=== PATIENT | male | born 1975 | race Caucasian/White ===

== ENCOUNTER 2017-08-14 09:53 | Emergency (ER) | payer BC, OTHER ==
[2017-08-14 10:49] LABS: Urine Appearance Cloudy; Urine Blood Negative (Negative); Urine Color Yellow; Urine Ketones Trace (Negative); Urine Protein 1+(30 mg/dL) (Negative); Urine Urobilinogen Negative (Negative)
[2017-08-14 11:29] LABS: ABS Basophils 0.1 10^3/ul (0-0.2); ABS Eosinophils 0 10^3/ul (0-0.6); ABS Lymphocytes 2.5 10^3/ul (1.0-4.8); ABS Neutrophils 9.2 10^3/ul (1.5-7.7); ABS Nucleated RBC 0 10^3/ul; Eosinophil % 0.3 % (0-6); Hematocrit 47 % (42-52); Lymphocyte % 19.2 % (25-47); Mean Corpuscular HGB Conc 34 g/dl (31-36); Mean Corpuscular Hemoglobin 30 pg (27-31); Mean Corpuscular Volume 90 fL (80-94); Mean Platelet Volume 9 um3 (7.4-10.4); Nucleated Red Blood Cells % 0; Platelet Count 293 10^3/ul (150-450); Red Blood Count 5.26 10^6/ul (4.0-5.4); Red Cell Distribution Width 14 % (10.5-15); White Blood Count 12.8 10^3/ul (3.5-10.8)
[2017-08-14 11:45] LABS: EGFR Non-African American 88.4 (>60)
[2017-08-14] MEDS ORDERED: Nicotine Inhaler* 10 MG AMP ONE (12:18)
[2017-08-14] MEDS ORDERED: Mouth Piece, Nicotine* 1 EACH CARTRIDGE ONE (12:18)
[2017-08-14] MEDS ORDERED: Mouth Piece, Nicotine* 1 EACH CARTRIDGE INH PRN (12:20)
[2017-08-14] MEDS ORDERED: Nicotine Inhaler* 10 MG AMP INH ONE (12:20)
[2017-08-14 13:04] VITALS: BP 133/81
--- NOTE | 2017-08-14 13:24 | ED ---
Fly Dawson Gabriel, scribed for Juvenal Arroyo MD on 08/14/17 at 1002 . Psychiatric Complaint - HPI Summary HPI Summary: This patient is a 41 year old M BIBA to [facility] accompanied by the paramedics with a chief complaint of increased anxiety. The patient rates the pain 0/10 in severity. Patient states he has had a recent increase of stress in his life after his friends so . He has previous broke his back and takes pain medication daily. Additionally he is on parole and admits to meth use. - History Of Current Complaint Time Seen by Provider: 08/14/17 09:59 Hx Obtained From: Patient Onset/Duration: Lasting Hours, Still Present Timing: Constant Severity Initially: Moderate Severity Currently: Moderate Character: Anxious Aggravating Factor(s): Recent Stress, Drug Use - Allergies/Home Medications Allergies/Adverse Reactions: Allergies Allergy/AdvReac Type Severity Reaction Status Date / Time acetaminophen [From Percocet] Allergy Hallucinati Verified 08/14/17 11:36 ons oxycodone [From Percocet] Allergy Hallucinati Verified 08/14/17 11:36 ons Home Medications: Home Medications Gabapentin CAP(*) [Neurontin 400 mg CAP(*)] 600 mg PO QID 08/14/17 [History Confirmed 08/14/17] Morphine TAB Extended Rel(*) [Ms Contin(*)] 30 mg PO BID 08/14/17 [History Confirmed 08/14/17] PMH/Surg Hx/FS Hx/Imm Hx Endocrine/Hematology History: Denies: Hx Diabetes, Hx Sickle Cell Disease Musculoskeletal History: Reports: Other Musculoskeletal History - broke his back EENT History: Denies: Hx Deafness Psychiatric History: Reports: Hx Anxiety - Cancer History Cancer Type, Location and Year: basal cell carcinoma - Family History Known Family History: Positive: Cardiac Disease - father had an NH, Diabetes - mother - Social History Alcohol Use: Weekly Substance Use Type: Reports: Other - meth Hx Tobacco Use: Yes Smoking Status (MU): Current Every Day Smoker Review of Systems Negative: Fever Positive: Anxious All Other Systems Reviewed And Are Negative: Yes Physical Exam - Summary Physical Exam Summary: VITAL SIGNS: Reviewed. GENERAL: Patient is a well-developed and nourished male who is lying comfortable in the stretcher. Patient is not in any acute respiratory distress. HEAD AND FACE: No signs of trauma. No ecchymosis, hematomas or skull depressions. No sinus tenderness. EYES: PERRLA, EOMI x 2, No injected conjunctiva, no nystagmus. EARS: Hearing grossly intact. Ear canals and tympanic membranes are within normal limits. MOUTH: Oropharynx within normal limits. NECK: Supple, trachea is midline, no adenopathy, no JVD, no carotid bruit, no c- spine tenderness, neck with full ROM. CHEST: Symmetric, no tenderness at palpation LUNGS: Clear to auscultation bilaterally. No wheezing or crackles. CVS: Regular rate and rhythm, S1 and S2 present, no murmurs or gallops appreciated. ABDOMEN: Soft, non-tender. No signs of distention. No rebound no guarding, and no masses palpated. Bowel sounds are normal. EXTREMITIES: FROM in all major joints, no edema, no cyanosis or clubbing. NEURO: Alert and oriented x 3. No acute neurological deficits. Speech is normal and follows commands. SKIN: Dry and warm Triage Information Reviewed: Yes Vital Signs On Initial Exam: Initial Vitals Temp Pulse Resp BP Pulse Ox 98.4 F 94 20 168/97 97 08/14/17 10:03 08/14/17 10:03 08/14/17 10:03 08/14/17 10:03 08/14/17 10:03 Vital Signs Reviewed: Yes Diagnostics - Vital Signs Vital Signs Temp Pulse Resp BP Pulse Ox 08/14/17 13:03 98.2 F 110 17 133/81 96 08/14/17 10:03 98.4 F 94 20 168/97 97 - Laboratory Lab Results: Lab Results 08/14/17 08/14/17 08/14/17 Range/Units 10:15 10:15 11:16 WBC (3.5-10.8) 10^3/ul RBC (4.0-5.4) 10^6/ul Hgb (14.0-18.0) g/dl Hct (42-52) % MCV (80-94) fL MCH (27-31) pg MCHC (31-36) g/dl RDW (10.5-15) % Plt Count (150-450) 10^3/ul MPV (7.4-10.4) um3 Neut % (Auto) (38-83) % Lymph % (Auto) (25-47) % Wright % (Auto) (0-7) % Eos % (Auto) (0-6) % Baso % (Auto) (0-2) % Absolute Neuts (auto) (1.5-7.7) 10^3/ul Absolute Lymphs (auto) (1.0-4.8) 10^3/ul Absolute Monos (auto) (0-0.8) 10^3/ul Absolute Eos (auto) (0-0.6) 10^3/ul Absolute Basos (auto) (0-0.2) 10^3/ul Absolute Nucleated RBC 10^3/ul Nucleated RBC % Sodium 138 (133-145) mmol/L Potassium 3.8 (3.5-5.0) mmol/L Chloride 105 (101-111) mmol/L Carbon Dioxide 24 (22-32) mmol/L Anion Gap 9 (2-11) mmol/L BUN 17 (6-24) mg/dL Creatinine 0.94 (0.67-1.17) mg/dL Est GFR ( Amer) 113.7 (>60) Est GFR (Non-Af Amer) 88.4 (>60) BUN/Creatinine Ratio 18.1 (8-20) Glucose 98 (70-100) mg/dL Calcium 10.1 (8.6-10.3) mg/dL Total Bilirubin 0.50 (0.2-1.0) mg/dL AST 21 (13-39) U/L ALT 30 (7-52) U/L Alkaline Phosphatase 72 (34-104) U/L Total Protein 7.6 (6.4-8.9) g/dL Albumin 4.7 (3.2-5.2) g/dL Globulin 2.9 (2-4) g/dL Albumin/Globulin Ratio 1.6 (1-3) TSH 1.02 (0.34-5.60) mcIU/mL Urine Color Yellow Urine Appearance Cloudy Urine pH 5.0 (5-9) Ur Specific Lindsay 1.030 (1.010-1.030) Urine Protein 1+(30 mg/dl) A (Negative) Urine Ketones Trace A (Negative) Urine Blood Negative (Negative) Urine Nitrate Negative (Negative) Urine Bilirubin Negative (Negative) Urine Urobilinogen Negative (Negative) Ur Leukocyte Esterase Negative (Negative) Urine WBC (Auto) Trace(0-5/hpf) (Absent) Urine RBC (Auto) Absent (Absent) Urine Bacteria Absent (Absent) Urine Glucose Negative (Negative) Urine Ascorbic Acid * A (Negative) Salicylates < 2.50 (<30) mg/dL Urine Opiates Screen None detected (None Detect) Acetaminophen < 15 mcg/mL Ur Barbiturates Screen None detected (None Detect) Ur Phencyclidine Scrn None detected (None Detect) Ur Amphetamines Screen Presumptive positive A (None Detect) U Benzodiazepines Scrn None detected (None Detect) Urine Cocaine Screen None detected (None Detect) U Cannabinoids Screen Presumptive positive A (None Detect) Serum Alcohol < 10 (<10) mg/dL 08/14/17 Range/Units 11:16 WBC 12.8 H (3.5-10.8) 10^3/ul RBC 5.26 (4.0-5.4) 10^6/ul Hgb 16.0 (14.0-18.0) g/dl Hct 47 (42-52) % MCV 90 (80-94) fL MCH 30 (27-31) pg MCHC 34 (31-36) g/dl RDW 14 (10.5-15) % Plt Count 293 (150-450) 10^3/ul MPV 9 (7.4-10.4) um3 Neut % (Auto) 71.8 (38-83) % Lymph % (Auto) 19.2 L (25-47) % Wright % (Auto) 8.0 H (0-7) % Eos % (Auto) 0.3 (0-6) % Baso % (Auto) 0.7 (0-2) % Absolute Neuts (auto) 9.2 H (1.5-7.7) 10^3/ul Absolute Lymphs (auto) 2.5 (1.0-4.8) 10^3/ul Absolute Monos (auto) 1.0 H (0-0.8) 10^3/ul Absolute Eos (auto) 0 (0-0.6) 10^3/ul Absolute Basos (auto) 0.1 (0-0.2) 10^3/ul Absolute Nucleated RBC 0 10^3/ul Nucleated RBC % 0 Sodium (133-145) mmol/L Potassium (3.5-5.0) mmol/L Chloride (101-111) mmol/L Carbon Dioxide (22-32) mmol/L Anion Gap (2-11) mmol/L BUN (6-24) mg/dL Creatinine (0.67-1.17) mg/dL Est GFR ( Amer) (>60) Est GFR (Non-Af Amer) (>60) BUN/Creatinine Ratio (8-20) Glucose (70-100) mg/dL Calcium (8.6-10.3) mg/dL Total Bilirubin (0.2-1.0) mg/dL AST (13-39) U/L ALT (7-52) U/L Alkaline Phosphatase (34-104) U/L Total Protein (6.4-8.9) g/dL Albumin (3.2-5.2) g/dL Globulin (2-4) g/dL Albumin/Globulin Ratio (1-3) TSH (0.34-5.60) mcIU/mL Urine Color Urine Appearance Urine pH (5-9) Ur Specific Lindsay (1.010-1.030) Urine Protein (Negative) Urine Ketones (Negative) Urine Blood (Negative) Urine Nitrate (Negative) Urine Bilirubin (Negative) Urine Urobilinogen (Negative) Ur Leukocyte Esterase (Negative) Urine WBC (Auto) (Absent) Urine RBC (Auto) (Absent) Urine Bacteria (Absent) Urine Glucose (Negative) Urine Ascorbic Acid (Negative) Salicylates (<30) mg/dL Urine Opiates Screen (None Detect) Acetaminophen mcg/mL Ur Barbiturates Screen (None Detect) Ur Phencyclidine Scrn (None Detect) Ur Amphetamines Screen (None Detect) U Benzodiazepines Scrn (None Detect) Urine Cocaine Screen (None Detect) U Cannabinoids Screen (None Detect) Serum Alcohol (<10) mg/dL Result Diagrams: 08/14/17 11:16 08/14/17 11:16 Lab Statement: Any lab studies that have been ordered have been reviewed, and results considered in the medical decision making process. Course/Dx - Course Assessment/Plan: This patient is a 41 year old M BIBA to [facility] accompanied by the paramedics with a chief complaint of increased anxiety. The patient rates the pain 0/10 in severity. Patient states he has had a recent increase of stress in his life after his friends so . He has previous broke his back and takes pain medication daily. Additionally he is on parole and admits to meth use. Test results with no significant abnormalities except for a positive toxicology for amphetamines and cannabinoids. In the ED course the patient was given nicotine inhaler and she is hemodynamicaly stable. The patient had a MHE and his was cleared by Dr. Templeton and recommends discharge home with F/U od PCP. He has no SI or HI. Dx polysubstance and anxiety. Patient will be discharged and follow up from his PCP. The patient is agreeable with this plan. - Differential Dx/Clinical Impression Differential Diagnosis/HQI/PQRI: Positive: Anxiety, Depression Provider Diagnosis: Polysubstance abuse, Anxiety Discharge - Discharge Plan Condition: Good Disposition: HOME Referrals: Non Staff,Doctor [Medical Doctor] - The documentation as recorded by the Fly stephenson Gabriel accurately reflects the service I personally performed and the decisions made by me, Juvenal Arroyo MD.
== END 2017-08-14 13:04 | disposition home or self-care (01) ==
LOC: ED 09:53
DX: F19.10 Other psychoactive substance abuse, uncomplicated (principal); F41.9 Anxiety disorder, unspecified; F17.210 Nicotine dependence, cigarettes, uncomplicated
CPT/HCPCS: 36415; 80053; 80307; 80320; 80329; 81003; 81015; 84443; 85025; 87086; 99282; A9270-GY; G0480

== ENCOUNTER 2017-08-14 15:39 | Emergency (ER) | payer OTHER ==
[2017-08-14] MEDS ORDERED: diPHENhydraMINE IV* 50 MG/ML 1 ml VIAL (BENADRYL) ONE (15:50)
[2017-08-14] MEDS ORDERED: Haloperidol INJ IV/IM* 5 MG/ML AMP ONE (15:50)
[2017-08-14] MEDS ORDERED: LORazepam INJ* 2 MG/ML 1 ML VIAL ONE ×2 (15:50→15:59)
[2017-08-14] MEDS ORDERED: LORazepam INJ* 2 MG/ML 1 ML VIAL IV PUSH ONE (15:57)
[2017-08-14] MEDS ORDERED: NS 0.9% 1000 ML* 1,000 ML IV ONE (16:06)
[2017-08-14 17:26] LABS: Urine Appearance Cloudy; Urine Blood Negative (Negative); Urine Color Amber; Urine Ketones 1+ (Negative); Urine Protein 2+(100 mg/dL) (Negative); Urine Specific Gravity 1.029 (1.010-1.030); Urine Urobilinogen Negative (Negative)
[2017-08-14 17:44] LABS: ABS Basophils 0.1 10^3/ul (0-0.2); ABS Eosinophils 0 10^3/ul (0-0.6); ABS Lymphocytes 1.3 10^3/ul (1.0-4.8); ABS Monocytes 1.3 10^3/ul (0-0.8); ABS Neutrophils 15.4 10^3/ul (1.5-7.7); ABS Nucleated RBC 0 10^3/ul; Eosinophil % 0.1 % (0-6); Hematocrit 46 % (42-52); Hemoglobin 15.5 g/dl (14.0-18.0); Lymphocyte % 7.2 % (25-47); Mean Corpuscular HGB Conc 34 g/dl (31-36); Mean Corpuscular Hemoglobin 30 pg (27-31); Mean Corpuscular Volume 89 fL (80-94); Mean Platelet Volume 9 um3 (7.4-10.4); Nucleated Red Blood Cells % 0; Platelet Count 281 10^3/ul (150-450); Red Blood Count 5.14 10^6/ul (4.0-5.4); Red Cell Distribution Width 13 % (10.5-15)
[2017-08-14 18:02] LABS: EGFR Non-African American 54.1 (>60)
[2017-08-15 06:52] VITALS: BP 111/83
--- NOTE | 2017-08-15 06:53 | ED ---
Attila Dawson Tiffany, scribed for Amy Asif MD on 08/15/17 at 0646 . Progress - Progress Note Progress Note: Patient is a sign out from Dr. Arroyo. - Consult/PCP Time Called: 05:50 Course/Dx - Course Course Of Treatment: 41 y/o M presents with substance abuse. Cleared by mental health. Will be discharged. - Diagnoses Provider Diagnoses: Substance abuse The documentation as recorded by the Attila stephenson Tiffany accurately reflects the service I personally performed and the decisions made by Laya remy Abdul, MD.
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
== END 2017-08-15 06:47 ==
LOC: ED 15:39
DX: F19.10 Other psychoactive substance abuse, uncomplicated (principal); F17.200 Nicotine dependence, unspecified, uncomplicated; Z88.6 Allergy status to analgesic agent; Z88.5 Allergy status to narcotic agent
CPT/HCPCS: 36415; 80053; 80307; 80320; 80329; 81003; 82550; 84443; 85025; 93005; 96361; 96374; 96375; 96376; 99285; G0480; J1200; J1630; J2060

== ENCOUNTER 2017-08-18 06:53 | Emergency (ER) | payer OTHER ==
[2017-08-18] MEDS ORDERED: Ziprasidone IM INJ* 20 MG/ML VIAL IM ONE (07:27)
[2017-08-18] MEDS ORDERED: LORazepam INJ* 2 MG/ML 1 ML VIAL IV PUSH ONE ×2 (07:27→07:36)
[2017-08-18] MEDS ORDERED: LORazepam INJ* 2 MG/ML 1 ML VIAL ONE (07:37)
[2017-08-18 07:48] LABS: Urine Appearance Cloudy; Urine Blood Negative (Negative); Urine Color Yellow; Urine Ketones 1+ (Negative); Urine Protein Negative (Negative); Urine Specific Gravity 1.024 (1.010-1.030); Urine Urobilinogen Negative (Negative)
[2017-08-18 07:57] VITALS: BP 0/0
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
== END 2017-08-18 07:54 | disposition home or self-care (01) ==
LOC: ED 06:53
DX: F41.9 Anxiety disorder, unspecified (principal); F17.200 Nicotine dependence, unspecified, uncomplicated
CPT/HCPCS: 36415; 80307; 81003; 81015; 87086; 99283; J2060; J3486

== ENCOUNTER 2018-11-05 20:36 | Emergency (ER) | payer OTHER ==
[2018-11-05] MEDS ORDERED: LORazepam INJ* 2 MG/ML 1 ML VIAL ONE (20:49)
[2018-11-05] MEDS ORDERED: Haloperidol INJ IV/IM* 5 MG/ML AMP ONE (20:53)
[2018-11-05] MEDS ORDERED: diPHENhydraMINE IV* 50 MG/ML 1 ml VIAL (BENADRYL) ONE (20:53)
[2018-11-05 21:42] LABS: ABS Basophils 0.1 10^3/ul (0-0.2); ABS Lymphocytes 0.9 10^3/ul (1.0-4.8); ABS Monocytes 0.5 10^3/ul (0-0.8); ABS Neutrophils 6.6 10^3/ul (1.5-7.7); Eosinophil % 0.1 %; Hematocrit 46 % (42-52); Hemoglobin 15.4 g/dL (14.0-18.0); Lymphocyte % 11.6 %; Mean Corpuscular HGB Conc 34 g/dL (31-36); Mean Corpuscular Hemoglobin 31 pg (27-31); Mean Corpuscular Volume 92 fL (80-94); Mean Platelet Volume 8.3 fL (7.4-10.4); Platelet Count 242 10^3/uL (150-450); Red Blood Count 4.98 10^6 /uL (4.18-5.48); Red Cell Distribution Width 14 % (10.5-15); White Blood Count 8.1 10^3/uL (3.5-10.8)
[2018-11-05 21:59] LABS: ALT 34 U/L (7-52); AST 20 U/L (13-39); Albumin 4.7 g/dL (3.2-5.2); Albumin/Globulin Ratio 1.9 (1-3); Alkaline Phosphatase 67 U/L (34-104); Anion Gap 9 mmol/L (2-11); BUN/Creatinine Ratio 11.4 (8-20); Blood Urea Nitrogen 17 mg/dL (6-24); CO2 Carbon Dioxide 26 mmol/L (22-32); Calcium 9.7 mg/dL (8.6-10.3); Chloride 103 mmol/L (101-111); Creatine Kinase 284 U/L (10-223); EGFR African American 62.3 (>60); EGFR Non-African American 51.5 (>60); Globulin 2.5 g/dL (2-4); Glucose 196 mg/dL (70-100); Potassium 3.9 mmol/L (3.5-5.0); Sodium 138 mmol/L (135-145); Total Protein 7.2 g/dL (6.4-8.9)
[2018-11-05] MEDS ORDERED: NS 0.9% 1000 ML** 1,000 ML IV ONE ×2 (22:09→23:23)
[2018-11-05 22:30] LABS: Acetaminophen < 15 mcg/mL; Alcohol < 10 mg/dL (<10); Salicylate < 2.50 mg/dL (<30)
--- NOTE | 2018-11-05 22:37 | ED ---
Substance Abuse/Use - HPI Summary HPI Summary: This patient is a 43 year old M in handcuffs [facility] because patients mother kept calling 911 due to multiple hallucinations. Police reports multiple hallucinations and conversations with people not there. Patient denies SI and HI. Patient reports snorting meth around 1400 today and smoking marijuana. Patient is restrained by law enforcement for duration of history. - History Of Current Complaint Chief Complaint: EDMentalHealth Stated Complaint: 941 PER POLICE Time Seen by Provider: 11/05/18 20:45 Hx Obtained From: Patient, EMS Onset/Duration of Drug/ETOH Abuse: Hours Ingestion History: Type/Name Of Drug - meth marijuana Overdose Characteristics: Oral, Inhalation Character: Manic Alleviating Factor(s): Nothing Associated Signs And Symptoms: Hostile, Hallucinating - Allergies/Home Medications Allergies/Adverse Reactions: Allergies Allergy/AdvReac Type Severity Reaction Status Date / Time acetaminophen [From Percocet] Allergy Hallucinati Verified 08/14/17 11:36 ons Opioids - Morphine Analogues Allergy Hallucinati Verified 11/05/18 20:38 ons oxycodone [From Percocet] Allergy Hallucinati Verified 08/14/17 11:36 ons Home Medications: Home Medications Gabapentin 1,200 mg PO BEDTIME 11/05/18 [History Confirmed 11/05/18] Gabapentin 600 mg PO SEE INSTRUCTIONS 11/05/18 [History Confirmed 11/05/18] Sertraline* [Zoloft*] 100 mg PO DAILY 11/05/18 [History Confirmed 11/05/18] busPIRone TAB* [Buspar TAB *] 15 mg PO BID 11/05/18 [History Confirmed 11/05/18] PMH/Surg Hx/FS Hx/Imm Hx Endocrine/Hematology History: Denies: Hx Diabetes, Hx Sickle Cell Disease Musculoskeletal History: Reports: Other Musculoskeletal History - broke his back Sensory History: Denies: Hx Deafness Psychiatric History: Reports: Hx Anxiety Denies: Hx Eating Disorder, Hx of Violent Episodes Against Others - Cancer History Cancer Type, Location and Year: basal cell carcinoma Infectious Disease History: No Infectious Disease History: Denies: Traveled Outside the [place] in Last 30 Days - Family History Known Family History: Positive: Cardiac Disease - father had an [place], Diabetes - mother - Social History Alcohol Use: Weekly Substance Use Type: Reports: Marijuana, Other Substance Use Comment - Amount & Last Used: meth Hx Tobacco Use: Yes Smoking Status (MU): Current Every Day Smoker Review of Systems Constitutional: Negative Positive: Other - hallucinations. Negative: Depressed All Other Systems Reviewed And Are Negative: Yes Physical Exam - Summary Physical Exam Summary: GENERAL: Patient is a well-developed and nourished M who is currently agitated and restrained by officers. Patient is not in any acute respiratory distress. HEAD AND FACE: Normocephalic EYES: PERRLA, EOMI x 2. EARS: Hearing grossly intact. MOUTH: Oropharynx within normal limits. NECK: Supple, trachea is midline, no adenopathy, no JVD, no carotid bruit. CHEST: Symmetric, no tenderness at palpation LUNGS: Clear to auscultation bilaterally. No wheezing or crackles. CVS: Regular rate and rhythm, S1 and S2 present, no murmurs or gallops appreciated. ABDOMEN: Soft, non-tender. Bowel sounds are normal. No abnormal abdominal pulsations. EXTREMITIES: Full ROM in all major joints, no edema, no cyanosis or clubbing. NEURO: Alert and oriented x 3. No acute neurological deficits. Speech is normal and follows commands. SKIN: Dry and warm Triage Information Reviewed: Yes Vital Signs On Initial Exam: Initial Vitals Temp Pulse Resp BP Pulse Ox 98.5 F 163 18 0/0 98 11/05/18 20:36 11/05/18 20:36 11/05/18 20:36 11/05/18 20:36 11/05/18 20:36 Vital Signs Reviewed: Yes Diagnostics - Vital Signs Vital Signs Temp Pulse Resp BP Pulse Ox 11/05/18 20:36 98.5 F 163 18 0/0 98 - Laboratory Lab Results: Lab Results 11/05/18 11/05/18 Range/Units 21:35 21:35 WBC 8.1 (3.5-10.8) 10^3/uL RBC 4.98 (4.18-5.48) 10^6 /uL Hgb 15.4 (14.0-18.0) g/dL Hct 46 (42-52) % MCV 92 (80-94) fL MCH 31 (27-31) pg MCHC 34 (31-36) g/dL RDW 14 (10.5-15) % Plt Count 242 (150-450) 10^3/uL MPV 8.3 (7.4-10.4) fL Neut % (Auto) 81.3 % Lymph % (Auto) 11.6 % [place] % (Auto) 6.3 % Eos % (Auto) 0.1 % Baso % (Auto) 0.7 % Absolute Neuts (auto) 6.6 (1.5-7.7) 10^3/ul Absolute Lymphs (auto) 0.9 L (1.0-4.8) 10^3/ul Absolute Monos (auto) 0.5 (0-0.8) 10^3/ul Absolute Eos (auto) 0.0 (0-0.6) 10^3/ul Absolute Basos (auto) 0.1 (0-0.2) 10^3/ul Absolute Nucleated RBC 0.0 10^3/ul Nucleated RBC % 0.0 Sodium 138 (135-145) mmol/L Potassium 3.9 (3.5-5.0) mmol/L Chloride 103 (101-111) mmol/L Carbon Dioxide 26 (22-32) mmol/L Anion Gap 9 (2-11) mmol/L BUN 17 (6-24) mg/dL Creatinine 1.49 H (0.67-1.17) mg/dL Est GFR ( Amer) 62.3 (>60) Est GFR (Non-Af Amer) 51.5 (>60) BUN/Creatinine Ratio 11.4 (8-20) Glucose 196 H (70-100) mg/dL Calcium 9.7 (8.6-10.3) mg/dL Total Bilirubin 0.40 (0.2-1.0) mg/dL AST 20 (13-39) U/L ALT 34 (7-52) U/L Alkaline Phosphatase 67 (34-104) U/L Total Creatine Kinase 284 H (10-223) U/L Total Protein 7.2 (6.4-8.9) g/dL Albumin 4.7 (3.2-5.2) g/dL Globulin 2.5 (2-4) g/dL Albumin/Globulin Ratio 1.9 (1-3) TSH Pending Salicylates < 2.50 (<30) mg/dL Acetaminophen < 15 mcg/mL Serum Alcohol < 10 (<10) mg/dL Result Diagrams: 11/05/18 21:35 11/05/18 21:35 Lab Statement: Any lab studies that have been ordered have been reviewed, and results considered in the medical decision making process. Course/Dx - Course Course Of Treatment: 43 year old M in handcuffs [facility] because patients mother kept calling 911 due to multiple hallucinations. Police reports multiple hallucinations and conversations with people not there. Patient denies SI and HI. Patient reports snorting meth around 1400 today and smoking marijuana. At 2052, after exam patient became highly agitated. Chemical and physical restraints were provided requiring the assistance of multiple police officers and security guards. After an hour patient fell asleep and the physical restraints were removed. Bloodwork, UA, and toxicology report obtained. Patient is signed out to Dr. Roger pending substance metabolism. - Diagnoses Provider Diagnoses: Substance abuse Discharge - Sign-Out/Discharge Documenting (check all that apply): Sign-Out Patient Signing out patient TO: Erik Roger - substance metabolism Patient Received Moderate/Deep Sedation with Procedure: No - Discharge Plan Condition: Stable Disposition: HOME Patient Education Materials: Cannabis Abuse (ED), Methamphetamine Abuse (ED) Referrals: Italo GILL,Henrik Tomas [Primary Care Provider] - Additional Instructions: Per completion of a mental health evaluation, you are cleared for release and do not require inpatient psychiatric hospitalization at this time. Please go to nearest emergency room or call 911 if safety concerns arise or condition worsens. Please contact one of the substance treatment services below for an appointment Substance Abuse Treatment Programs: [facility] [phone] [facility] [place] [facility] Important Phone Numbers: [facility] [phone] Suicide Prevention and Crisis Services........................ [phone] National Suicide Prevention Lifeline............................ 267-577-CMML (2721) [facility]....................... [phone] Alcoholics Anonymous............................................... [phone] [facility].............. [phone] [facility] Police.............................................. [phone] - Billing Disposition and Condition Condition: STABLE Disposition: Home - Attestation Statements Document Initiated by Indu: Yes Documenting Scribe: Connie Douglas Provider For Whom Indu is Documenting (Include Credential): Agnieszka Byrd MD Scribe Attestation: Connie Dawson, scribed for Agnieszka Byrd MD on 11/08/18 at 1247. Scribe Documentation Reviewed: Yes Provider Attestation: The documentation as recorded by the Connie stephenson accurately reflects the service I personally performed and the decisions made by Agnieszka remy MD Status of Scribe Document: Viewed
--- NOTE | 2018-11-05 23:22 | ED ---
Progress - Progress Note Progress Note: This patient is a sign-out from Dr. Byrd to Dr. Roger at 1999 on 11/05/18 at shift change pending substance metabolism. Course/Dx - Course Course Of Treatment: This patient is a sign-out from Dr. Byrd to Dr. Roger at 1999 on 11/05/18 at shift change pending substance metabolism. Patient is medically cleared for [facility] at 0409. This patient will be discharged home with dx of substance abuse by Dr. Templeton. - Diagnoses Provider Diagnoses: Substance abuse Discharge - Sign-Out/Discharge Documenting (check all that apply): Patient Departure Patient Received Moderate/Deep Sedation with Procedure: No - Discharge Plan Condition: Stable Disposition: HOME Patient Education Materials: Cannabis Abuse (ED), Methamphetamine Abuse (ED) Referrals: Italo GILL,Henrik Tomas [Primary Care Provider] - Additional Instructions: Per completion of a mental health evaluation, you are cleared for release and do not require inpatient psychiatric hospitalization at this time. Please go to nearest emergency room or call 911 if safety concerns arise or condition worsens. Please contact one of the substance treatment services below for an appointment Substance Abuse Treatment Programs: [facility] [phone] [facility] [place] [facility] Important Phone Numbers: [facility] Unit [phone] Suicide Prevention and Crisis Services........................ [phone] National Suicide Prevention Lifeline............................ 953-462-CGFE (6671) [facility]....................... [phone] Alcoholics Anonymous............................................... [facility].............. [phone] [facility] Police.............................................. - Billing Disposition and Condition Condition: STABLE Disposition: Home - Attestation Statements Document Initiated by Indu: Yes Documenting Scribe: Ralf Cannon Provider For Whom Indu is Documenting (Include Credential): MD Kip Hayesibe Attestation: I, Ralf Cannon, scribed for Erik Roger MD on 11/07/18 at 0310. Scribe Documentation Reviewed: Yes Provider Attestation: The documentation as recorded by the Ralf stephenson accurately reflects the service I personally performed and the decisions made by me, Erik Roger MD Status of Scribyannick Document: Viewed
[2018-11-06 07:33] VITALS: BP 96/50
== END 2018-11-06 07:32 | disposition home or self-care (01) ==
LOC: ED 20:36
DX: F19.10 Other psychoactive substance abuse, uncomplicated (principal); F41.9 Anxiety disorder, unspecified; Z88.8 Allergy status to other drugs, medicaments and biological substances; Z88.6 Allergy status to analgesic agent; Z88.5 Allergy status to narcotic agent; Z85.828 Personal history of other malignant neoplasm of skin
CPT/HCPCS: 36415; 80053; 80320; 80329; 82550; 84443; 85025; 96361; 96374; 99285; G0480; J1200; J1630; J2060